=== PATIENT | female | born 1970 | race Two or more races ===

== ENCOUNTER 2022-12-05 20:09 | Inpatient (IN) | payer MEDICAID ==
[~2022-12-05] VITALS: Ht 167.6 cm; Wt 59.0 kg
[2022-12-05] MEDS ORDERED: IV NS 0.9% 1,000 ML BAG IV ONE (20:30)
--- NOTE | 2022-12-05 20:48 | NUR ---
MOVE SHEET SUBMITTED
[2022-12-05 20:55] LABS: BASOPHILS % (AUTO) 0.2 % (0.0-2.0); EOSINOPHILS % (AUTO) 0.7 % (0.0-6.0); HEMATOCRIT 40 % (33-45); HEMOGLOBIN 13.1 g/dL (11.5-14.8); LYMPHOCYTES # (AUTO) 1.9 K/uL (0.8-4.8); LYMPHOCYTES % (AUTO) 9.2 % (20.0-44.0); MEAN CORPUSCULAR HGB CONC 33 g/dl (31.0-36.0); MEAN CORPUSCULAR VOLUME 86 fL (82-100); MONOCYTES % (AUTO) 4.9 % (2.0-12.0); NEUTROPHILS # (AUTO) 17.3 K/uL (1.8-8.9); PLATELET COUNT (AUTO) 249 K/uL (150-450); RED BLOOD CELL COUNT(AUTO) 4.65 MIL/uL (4.0-5.2); WHITE BLOOD COUNT (AUTO) 20.4 K/uL (4.3-11.0)
[2022-12-05] MEDS ORDERED: VANCOMYCIN 1 GM in IV D5W 250 ML IV ONE (21:00)
[2022-12-05] MEDS ORDERED: AZTREONAM 1 G in IV NS 0.9% 100 ML IV ONE (21:00)
[2022-12-05] MEDS ORDERED: ACETAMINOPHEN 650 MG/SUPP.RECT RC ONE ×2 (21:00→21:37)
[2022-12-05] MEDS ORDERED: AZITHROMYCIN 500 MG in IV D5W 250 ML IV ONE (21:00)
--- NOTE | 2022-12-05 21:02 | NUR ---
urine sent to lab
--- NOTE | 2022-12-05 21:02 | NUR ---
shamar sent to lab.
--- NOTE | 2022-12-05 21:02 | NUR ---
blood and cultures sent to lab
--- NOTE | 2022-12-05 21:03 | NUR ---
chest x ray taken.
[2022-12-05] MEDS ORDERED: VANCOMYCIN 1 GM /D5W 250 ML PB IV ONE (21:08)
--- NOTE | 2022-12-05 21:20 | NUR ---
RT CALLED FOR ABG
[2022-12-05 21:21] LABS: ALANINE AMINOTRANSFERASE 79 U/L (12-78); ALKALINE PHOSPHATASE 202 U/L (46-116); ASPARTATE AMINOTRANSFERASE 66 U/L (15-37); BILIRUBIN,DIRECT 0.3 mg/dL (0.0-0.2); BILIRUBIN,TOTAL 0.8 mg/dL (0.2-1.0); CALCIUM, SERUM 9.2 mg/dL (8.5-10.1); CARBON DIOXIDE 27 mmol/L (21-32); CHLORIDE 101 mmol/L (98-107); CREATININE 0.7 mg/dL (0.6-1.3); GLUCOSE 108 mg/dL (74-106); SODIUM SERUM 136 mmol/L (136-145); TOTAL PROTEIN, SERUM 7.9 g/dL (6.4-8.2); UREA NITROGEN, BLOOD 18 mg/dL (7-18)
--- NOTE | 2022-12-05 21:24 | NUR ---
CRITICAL: LACTIC 2.1, MD AWARE
[2022-12-05 21:41] LABS: ABG BASE EXCESS -0.2 mmol/L; ABG PH 7.452 (7.350-7.450); ABG PO2 77.5 mmHg (75.0-100.0); COHb 0.6 % (0.5-1.5); MetHb 0.4 % (0.0-1.5); O2Hb 94.9 % (94.0-97.0); SITE, ABG Left Radial; VENT MODE, BG Nasal Cannula
--- NOTE | 2022-12-05 21:48 | NUR ---
DR ENG ON PHONE CALL WITH TAY NICE
[2022-12-05 21:49] LABS: EOSINOPHILS % (MANUAL) 1 % (0-4); LYMPHOCYTES % (MANUAL) 8 % (16-48); MONOCYTES % (MANUAL) 5 % (0-11.0); NEUTROPHILS % (MANUAL) 86 (42-76)
--- NOTE | 2022-12-05 23:57 | NUR ---
REPORT GIVEN TO CORKY Bolden RN FOR [place]
[2022-12-06 00:10] VITALS: BP 91/44
--- NOTE | 2022-12-06 00:10 | NUR ---
ADMISSION 52 y/o female nonverbal. Eyes closed, appears sleeping. Patients Jez at bedside. Patient non communicative. Hx Stroke. Skin assessment done. Abdomen presence of Gtube. Hanson cath intact, draining cloudy yellow with sediments urine. Fall/skin precaution maintained. Will cont to monitor.
--- NOTE | 2022-12-06 01:07 | NUR ---
CRITICAL LAB VALUE Lab reported Lactic Acid 2.2. Patient was given 1L NS in ER prior transfer to unit. Notified BUSINESS DATABASE ANALYST Violet with no new orders at this time.
[2022-12-06] MEDS: ENOXAPARIN SODIUM 40 MG/0.4 ML DISP.SYRIN SQ SCH ×2 (02:25→22:15)
[2022-12-06] MEDS ORDERED: MAG HYDROX/AL HYDROX/SIMETH 30 ML UDC PO PRN (02:30)
[2022-12-06] MEDS ORDERED: MAGNESIUM HYDROXIDE 30 ML UDC PO PRN (02:30)
[2022-12-06] MEDS ORDERED: ONDANSETRON HCL/PF 4 MG/2 ML VIAL IVP PRN (02:30)
[2022-12-06] MEDS ORDERED: ZOLPIDEM TARTRATE 5 MG TABLET PO PRN (02:30)
[2022-12-06] MEDS ORDERED: ACETAMINOPHEN 325 MG TABLET PO PRN (02:30)
[2022-12-06] MEDS ORDERED: Z GUARD REMEDY 4 OZ OINT TP PRN (02:30)
[2022-12-06] MEDS ORDERED: CEFEPIME 2 GM in IV D5W 100 ML IV ONE (02:30)
[2022-12-06] MEDS ORDERED: CEFEPIME 1 GM VIAL ONE (02:36)
[2022-12-06 05:19] VITALS: BP 110/60
[2022-12-06 05:57] LABS: BASOPHILS % (AUTO) 0.1 % (0.0-2.0); HEMATOCRIT 35 % (33-45); HEMOGLOBIN 11.6 g/dL (11.5-14.8); LYMPHOCYTES % (AUTO) 10.3 % (20.0-44.0); MEAN CORPUSCULAR HGB CONC 33 g/dl (31.0-36.0); MEAN CORPUSCULAR VOLUME 86 fL (82-100); MONOCYTES # (AUTO) 0.7 K/uL (0.1-1.30); MONOCYTES % (AUTO) 3.7 % (2.0-12.0); NEUTROPHILS # (AUTO) 16.3 K/uL (1.8-8.9); NEUTROPHILS % (AUTO) 84.9 % (43.0-81.0); PLATELET COUNT (AUTO) 216 K/uL (150-450); RED BLOOD CELL COUNT(AUTO) 4.04 MIL/uL (4.0-5.2); WHITE BLOOD COUNT (AUTO) 19.2 K/uL (4.3-11.0)
[2022-12-06 06:26] LABS: CALCIUM, SERUM 8.3 mg/dL (8.5-10.1); CREATININE 0.5 mg/dL (0.6-1.3); MAGNESIUM 2.4 mg/dL (1.8-2.4); PHOSPHORUS 2.7 mg/dL (2.5-4.9); POTASSIUM 3.9 mmol/L (3.5-5.1)
[2022-12-06 07:00] VITALS: BP 113/73
--- NOTE | 2022-12-06 07:25 | NUR ---
INFORMATION SERVICES TECH OPENING NOTES PATIENT RECEIVED IN BED ASLEEP AT THIS TIME, AWAKENS TO TACTILE STIMULI. HOB ELEVATED. PT IS NON-VERBAL AND OPEN EYES TO STIMULI. NO S/S OF PAIN OR DISCOMFORT AT THIS TIME. ON 02 VIA N/C @ 4LPM, TOLERATING WELL, BREATHING EVEN AND UNLABORED, NO SOB NOTED. IV ACCESS AT RIGHT HAND G#20 INTACT, PATENT AND FLUSHES WELL. PT ON EXTERNAL LENS GAUGER WITH CURRENT READING OF NSR, HR 96, NO S/S OF CARDIAC DISTRESS NOTED. G-TUBE IN PLACE AND PATENT. ASPIRATION PRECAUTIONS MAINTAINED. LIMA CATHETER IN PLACE WITH SLIGHTLY CLOUDY YELLOW URINE WITH SEDIMENTS OUTPUT NOTED. SAFETY MEASURES IN PLACE: BED LOCKED IN LOWEST POSITION, SIDE-RAILS UP X 3, HOB KEPT ELEVATED, BED ALARM ON, CALL LIGHT AND TRAY TABLE WITHIN REACH. WILL CONTINUE TO MONITOR PT.
--- NOTE | 2022-12-06 07:29 | NUR ---
END OF SHIFT REPORT Patient in bed, nonverbal, eyes closed. Oxygen sat high 90's in 4L NC. Sinus rhythm in the groundwater monitoring technician, HR 95. Right hand IV peripheral line intact. IV abx given with no adverse side effect. Patient had BM during the night, incontinent care done. Hanson cath draining, output 1200ml yellow cloudy with sediment. Afebrile. Abdomen presence of GTube, clamped at this time. Home medication for review. Urine specimen for test. Coccyx redness, wound consult placed. Care endorsed to BLAYNE Calzada.
--- NOTE | 2022-12-06 08:15 | NUR ---
RN NOTES URINE SPECIMEN COLLECTED AND CALLED LAB, SPOKED TO FORENSIC SOCIAL WORKER MARIO TO PICK-UP SPECIMEN FROM UNIT.
[2022-12-06 08:59] LABS: ABG OXYGEN SATURATION 95.2 % (92.0-98.5); ABG PCO2 37.1 mmHg (35.0-45.0); ABG PO2 76.4 mmHg (75.0-100.0); AaDO2 166.1 mmHg; COHb 0.6 % (0.5-1.5); MetHb 0.3 % (0.0-1.5); O2Hb 94.3 % (94.0-97.0); SITE, ABG Left Brachial; VENT MODE, BG NASAL CANNULA
--- NOTE | 2022-12-06 09:13 | NUR ---
WOUND CARE CONSULT: PT PRESENTS WITH SACRAL DEEP TISSUE INJURY, PRESENT ON ADMISSION. RECOMMENDATIONS MADE FOR SKIN PROTECTION. DISCUSSED WITH NURSING STAFF. MD IN AGREEMENT WITH PLAN OF CARE.
[2022-12-06] MEDS: PANTOPRAZOLE 40 MG VIAL IV SCH (09:14)
--- NOTE | 2022-12-06 09:22 | NUR ---
WOUND CARE CONSULT: PT PRESENTS WITH SACRAL DEEP TISSUE INJURY AND REDNESS TO BILATERAL FEET, PRESENT ON ADMISSION. LOWER EXXTREMITIES ARE CONTRACTED, MAKING OFFLOADING DIFFICULT. RECOMMENDATIONS MADE FOR SKIN PROTECTION. DISCUSSED WITH NURSING STAFF. IN AGREEMENT WITH PLAN OF CARE. Addendum: 12/06/22 at 0924 by BAO SEE WNDNU Amended: Links added.
[2022-12-06] MEDS: VANCOMYCIN 0.75 GM in IV D5W 250 ML IV SCH ×3 (09:50→23:24)
[2022-12-06] MEDS ORDERED: [UNRECOGNIZED DRUG - CODE] GT (09:59)
[2022-12-06] MEDS ORDERED: FAMO20TA8 GT (10:00)
[2022-12-06] MEDS ORDERED: LORA-259 GT (10:00)
[2022-12-06] MEDS ORDERED: NYST15PO4 TP (10:00)
[2022-12-06] MEDS ORDERED: [UNRECOGNIZED DRUG - CODE] TP (10:00)
[2022-12-06] MEDS ORDERED: NA P133E RC (10:00)
[2022-12-06] MEDS ORDERED: CRAN3875 GT (10:00)
[2022-12-06] MEDS ORDERED: ASPI-1169 GT (10:00)
[2022-12-06] MEDS ORDERED: SENN-261 GT (10:00)
[2022-12-06] MEDS ORDERED: BISA10SU11 RC (10:00)
[2022-12-06] MEDS ORDERED: IPRA0.2S9 IH (10:00)
[2022-12-06] MEDS ORDERED: ASCO-352 TD (10:00)
[2022-12-06] MEDS ORDERED: AMLO-213 GT (10:00)
[2022-12-06] MEDS ORDERED: CLOT15CR27 TP (10:00)
[2022-12-06] MEDS ORDERED: BACL10TA GT (10:00)
[2022-12-06] MEDS ORDERED: MULT9LIQ6 GT (10:00)
[2022-12-06] MEDS ORDERED: HYDR-4077 GT (10:00)
[2022-12-06] MEDS ORDERED: MAGN400O6 GT (10:00)
[2022-12-06] MEDS ORDERED: POLY15DR40 EACHEYE (10:00)
[2022-12-06] MEDS ORDERED: DOCU250C14 GT (10:00)
[2022-12-06] MEDS ORDERED: ACET-868 PO (10:00)
[2022-12-06] MEDS ORDERED: ATOR40TA GT (10:00)
[2022-12-06] MEDS ORDERED: CLON0.1T GT (10:00)
[2022-12-06] MEDS: JEVITY 1.2 CAL 1,000 ML BOTTLE GT PRN (10:42)
--- NOTE | 2022-12-06 11:16 | NUR ---
RN NOTES Pt seen and evaluated by agricultural produce sorter FRANDY and recommend JEVITY 1.2. Start at 20 ml/hr and advance 10-15 ml Q4H to goal of 55 ml/hr x 24 hr. Feed started at 1042. Aspiration precautions maintained. Will continue to monitor.
[2022-12-06] MEDS: CEFEPIME 2 GM in IV D5W 100 ML IV SCH ×2 (11:38→17:12)
[2022-12-06 12:20] LABS: BILIRUBIN,URINE NEGATIVE (NEGATIVE); COLOR,URINE DARK YELLOW (YELLOW); LEUKOCYTE ESTERASE ,URINE 3+ (NEGATIVE); NITRITE, URINE POSITIVE (NEGATIVE); PH,URINE 7.5 (5.0-8.0); PROTEIN,URINE 1+ mg/dl (NEGATIVE); UGLUCOSE NEGATIVE (NEGATIVE); UROBILINOGEN,URINE 0.2 EU/dL (0.2)
[2022-12-06 12:21] LABS: BACTERIA,URINE Few /HPF (None Seen); SQUAMOUS EPITHELIAL CELL,UR Rare /HPF (None Seen)
--- NOTE | 2022-12-06 12:37 | NUR ---
RN NOTE CALLED DR. PETTIT AND NOTIFIED HIM REGARDING CURRENT UA RESULTS, INFORMED HIM ALSO THAT PATIENT IS PULLING TUBES WITH AN ORDER TO PLACE LEFT HAND MITTENS FOR SAFETY. INFORMED HIM WELL TO VERIFY HOME MEDICATION RECONCILIATION.
[2022-12-06] MEDS ORDERED: SENNOSIDES 8.6 MG TABLET GT PRN (14:00)
[2022-12-06] MEDS ORDERED: BISACODYL SUPP (10 MG) 10 MG/SUPP.RECT SUPP.RECT RC PRN (14:00)
[2022-12-06] MEDS ORDERED: NA PHOS,M-B/NA PHOS,DI-BA 1 EA ENEMA RC PRN (14:00)
--- NOTE | 2022-12-06 14:49 | NUR ---
RN NOTES CHECKED GASTRIC RESIDUALS AND WAS "0", JEVITY FEEDING INCREASED FROM 20 TO 35ML/HR.
[2022-12-06 16:00] VITALS: BP 141/74
[2022-12-06] MEDS: DOCUSATE SODIUM 250 MG CAPSULE PO SCH (16:56)
[2022-12-06] MEDS: MAGNESIUM HYDROXIDE 30 ML UDC GT SCH (16:57)
[2022-12-06] MEDS: BACLOFEN (10 MG) 10 MG TABLET GT SCH ×2 (16:57→21:25)
[2022-12-06] MEDS: hydrALAZINE HCL 50 MG TABLET GT SCH (16:58)
--- NOTE | 2022-12-06 17:17 | NUR ---
RN NOTE CALLED RADIOLOGY TO F/U REGARDING PATIENTS CT OF THE NECK W/O CONTRAST AND WAS TOLD THAT IT WILL BE DONE BY TOMORROW PER [facility].
--- NOTE | 2022-12-06 18:48 | NUR ---
PERSONAL COMPUTER NETWORK ANALYST CLOSING NOTES PATIENT IN BED AWAKE AND LYING AT SEMI-MALCOLM'S POSITION. MUMBLES INCOMPREHENSIBLE WORDS AND OPEN EYES TO STIMULI. ON 02 VIA N/C @ 4LPM, TOLERATING WELL, BREATHING EVEN AND UNLABORED, NO SOB NOTED. LEFT HAND MITTEN KEPT IN PLACE, CIRCULATION AND SKIN WNL. IV ACCESS AT RIGHT HAND G#20 INTACT, PATENT AND FLUSHES WELL. ON TELE-MONITOR WITH CURRENT READING OF NSR, HR 99, NO S/S OF CARDIAC DISTRESS NOTED. G-TUBE IN PLACE AND PATENT WITH FEEDING OF JEVITY 1.2 @ 45 ML/HR ONGOING AT THIS TIME, TOLERATING WELL. ASPIRATION PRECAUTIONS MAINTAINED. LIMA CATHETER IN PLACE WITH SLIGHTLY CLOUDY YELLOW URINE WITH SEDIMENTS OUTPUT NOTED. PT TURNED AND REPOSITIONED Q 2HRS AND PRN. ALL NEEDS NAD CARE PROVIDED WELL. SAFETY MEASURES IN PLACE: BED LOCKED IN LOWEST POSITION, SIDE-RAILS UP X 3, HOB KEPT ELEVATED, BED ALARM ON, CALL LIGHT AND TRAY TABLE WITHIN REACH. WILL ENDORSE [place] TO LATHE MECHANIC NURSE.
--- NOTE | 2022-12-06 19:30 | NUR ---
PROCESS IMPROVEMENT MANAGER OPENING NOTES RECEIVED PATIENT AWAKE IN BED, NON-VERBAL AND OPEN EYES TO STIMULI. HOB ELEVATED. NO S/S OF PAIN OR DISCOMFORT AT THIS TIME. ON 02 VIA N/C @ 4LPM, BREATHING EVEN AND UNLABORED, NO DISTRESS OR SOB NOTED. IV ACCESS AT RIGHT HAND G#20 INTACT, PATENT AND FLUSHES WELL. PT ON EXTERNAL BLAST HOLE DRILLER WITH CURRENT READING OF SR/ST. NO S/S OF CARDIAC DISTRESS NOTED. G-TUBE IN PLACE RUNNING JEVITY 45ML/HR, TOLERATING WELL. ASPIRATION PRECAUTIONS MAINTAINED. LIMA CATHETER IN PLACE WITH SLIGHTLY CLOUDY YELLOW URINE. SAFETY MEASURES IN PLACE WITH BED IN LOWEST AND LOCKED POSITION. SIDE-RAILS UP X 3. BED ALARM ON. CALL LIGHT AND TRAY TABLE WITHIN REACH. WILL CONTINUE THE PLAN OF CARE.
--- NOTE | 2022-12-06 20:00 | NUR ---
RN NOTES-TYLENOL GIVEN PATIENT TEMP 101.7, TYLENOL 650MG GIVEN PRN. WILL CONTINUE TO MONITOR THE PATIENT.
[2022-12-06 20:15] VITALS: BP 141/70
[2022-12-06] MEDS: ATORVASTATIN 40 MG TABLET GT SCH (21:24)
[2022-12-06] MEDS: FAMOTIDINE (20 MG) 20 MG TABLET GT SCH (21:26)
[2022-12-06] MEDS: MEROPENEM 500 MG in IV NS 0.9% 50 ML IV SCH (21:28)
[2022-12-07 00:33] VITALS: BP 96/60
[2022-12-07 04:20] VITALS: BP 125/67
[2022-12-07] MEDS: MEROPENEM 500 MG in IV NS 0.9% 50 ML IV SCH ×3 (05:29→20:53)
--- NOTE | 2022-12-07 06:45 | NUR ---
BLAYNE MS/Tele Closing Note: Pt in bed resting, no signs or complaints of pain or discomfort at this time. IV site at LFA 20 gauge IV fluids running to keep vein open. GTube pump running at 55 mL/ hr, pt tolerating feeding well. Hanson catheter draining clear, yellow urine with 600 mL output. PM care provided, positioned for comfort. Addendum: 12/07/22 at 5 by ZAIRA STVEENSON RN Above note is meant for 1844.
[2022-12-07 07:00] VITALS: BP 126/67
--- NOTE | 2022-12-07 07:08 | NUR ---
GUN STOCKER CLOSING NOTES PATIENT AWAKE IN BED. A/O X 1-2. PATIENT ABLE TO RESPOND TO SIMPLE QUESTIONS. HOB ELEVATED. NO S/S OF PAIN OR DISCOMFORT AT THIS TIME. ON 02 VIA N/C @ 4LPM, BREATHING EVEN AND UNLABORED, NO DISTRESS OR SOB NOTED. IV ACCESS AT RIGHT HAND G#20 INTACT, PATENT AND FLUSHES WELL. PT ON EXTERNAL GUN STOCKER WITH CURRENT READING OF SR/ST. NO S/S OF CARDIAC DISTRESS NOTED. G-TUBE IN PLACE RUNNING JEVITY 55ML/HR, TOLERATING WELL. ASPIRATION PRECAUTIONS MAINTAINED. LIMA CATHETER IN PLACE WITH SLIGHTLY CLOUDY YELLOW URINE WITH PUTOUT OF 950CC. ALL MEDICATIONS GIVEN. SAFETY MEASURES MAINTAINED. WILL ENDORSE TO THE NEXT SHIFT.
[2022-12-07 07:14] LABS: BASOPHILS % (AUTO) 0.2 % (0.0-2.0); EOSINOPHILS % (AUTO) 1.8 % (0.0-6.0); HEMATOCRIT 36 % (33-45); HEMOGLOBIN 11.9 g/dL (11.5-14.8); LYMPHOCYTES # (AUTO) 0.7 K/uL (0.8-4.8); LYMPHOCYTES % (AUTO) 7.5 % (20.0-44.0); MEAN CORPUSCULAR HGB CONC 33 g/dl (31.0-36.0); MEAN CORPUSCULAR VOLUME 86 fL (82-100); MONOCYTES # (AUTO) 0.6 K/uL (0.1-1.30); MONOCYTES % (AUTO) 6.3 % (2.0-12.0); NEUTROPHILS # (AUTO) 8.2 K/uL (1.8-8.9); NEUTROPHILS % (AUTO) 84.2 % (43.0-81.0); PLATELET COUNT (AUTO) 260 K/uL (150-450); RED BLOOD CELL COUNT(AUTO) 4.14 MIL/uL (4.0-5.2); WHITE BLOOD COUNT (AUTO) 9.7 K/uL (4.3-11.0)
--- NOTE | 2022-12-07 07:30 | NUR ---
MS/heating worker Opening Notes Received pt in bed, awake, alert, verbal with limited vocab and speaks Bruneian/tends to mumble, difficult to understand. Pt has Gtube, feeding pump running Jevity at 55 mL per hour per MD order. Pt is tolerating feeding well. Pt found to have removed her own IV access, BLAYNE Renteria to insert a new IV line R arm. Pt is smiling, no signs of pain or distress. All needs are met at this time. Bed rails up, bed alarm on, call finney within reach. Will continue to monitor pt.
[2022-12-07 07:35] LABS: CALCIUM, SERUM 8.5 mg/dL (8.5-10.1); CREATININE 0.5 mg/dL (0.6-1.3); MAGNESIUM 2.3 mg/dL (1.8-2.4); PHOSPHORUS 2.3 mg/dL (2.5-4.9); POTASSIUM 3.5 mmol/L (3.5-5.1)
[2022-12-07] MEDS: VANCOMYCIN 0.75 GM in IV D5W 250 ML IV SCH ×2 (09:11→16:41)
[2022-12-07] MEDS: hydrALAZINE HCL 50 MG TABLET GT SCH ×3 (10:47→17:00)
[2022-12-07] MEDS: ASPIRIN 81 MG TAB.CHEW GT SCH (10:48)
[2022-12-07] MEDS: BACLOFEN (10 MG) 10 MG TABLET GT SCH ×4 (10:49→20:51)
[2022-12-07] MEDS: MAGNESIUM HYDROXIDE 30 ML UDC GT SCH ×2 (10:49→17:20)
[2022-12-07] MEDS: AMLODIPINE BESYLATE 10 MG TABLET GT SCH (10:50)
[2022-12-07] MEDS: FAMOTIDINE (20 MG) 20 MG TABLET GT SCH ×2 (10:50→20:51)
[2022-12-07] MEDS: DOCUSATE SODIUM 250 MG CAPSULE PO SCH (10:51)
[2022-12-07] MEDS: PANTOPRAZOLE 40 MG VIAL IV SCH (10:51)
[2022-12-07 12:00] VITALS: BP 103/64
[2022-12-07] MEDS: IPRATROPIUM NEB FS 0.5 MG/2.5 ML AMPUL.NEB IH SCH ×2 (15:41→23:10)
[2022-12-07] MEDS ORDERED: MAG HYDROX/AL HYDROX/SIMETH 30 ML UDC GT PRN (15:47)
[2022-12-07 16:00] VITALS: BP 104/53
[2022-12-07] MEDS ORDERED: ACETAMINOPHEN 650 MG/20.3 ML UDC GT PRN (16:00)
[2022-12-07] MEDS ORDERED: NEUTRA PHOS 1 POWD.PACKET GT ONE (16:00)
[2022-12-07] MEDS ORDERED: NEUTRA PHOS 1 POWD.PACKET PO ONE (16:00)
[2022-12-07] MEDS: JEVITY 1.2 CAL 1,000 ML BOTTLE GT PRN (16:22)
[2022-12-07] MEDS: DOCUSATE SODIUM LIQ 100 MG/10 ML UDC GT SCH (17:19)
--- NOTE | 2022-12-07 19:30 | NUR ---
PIPE COVERER AND INSULATOR OPENING NOTES RECEIVED PATIENT AWAKE IN BED. A/O X 1-2, ABLE TO RESPOND TO SIMPLE QUESTIONS. HOB ELEVATED FOR ASPIRATION PRECAUTION. NO S/S OF PAIN OR DISCOMFORT AT THIS TIME. ON 02 VIA N/C @ 2LPM, BREATHING EVEN AND UNLABORED, NO DISTRESS OR SOB NOTED. IV ACCESS LFA #20G INTACT, PATENT AND SALINE LOCK. PATIENT ON EXTERNAL CIVIL ENGINEER IN TRAINING WITH CURRENT READING OF SR/ST. NO S/S OF CARDIAC DISTRESS NOTED. G-TUBE IN PLACE RUNNING JEVITY 55ML/HR, TOLERATING WELL. LIMA CATHETER IN PLACE WITH SLIGHTLY CLOUDY YELLOW URINE. SAFETY MEASURES IN PLACE WITH BED IN LOWEST AND LOCKED POSITION. SIDE-RAILS UP X 3. BED ALARM ON. CALL LIGHT AND TRAY TABLE WITHIN REACH. WILL CONTINUE THE PLAN OF CARE.
[2022-12-07 20:00] VITALS: BP 113/52
[2022-12-07] MEDS: ENOXAPARIN SODIUM 40 MG/0.4 ML DISP.SYRIN SQ SCH (20:53)
[2022-12-07] MEDS: ATORVASTATIN 40 MG TABLET GT SCH (21:15)
[2022-12-08] VITALS: BP 101/55
[2022-12-08] MEDS: VANCOMYCIN 0.75 GM in IV D5W 250 ML IV SCH ×4 (00:13→23:25)
--- NOTE | 2022-12-08 01:10 | NUR ---
RN NOTES-TYLENOL GIVEN PATIENT'S TEMP LEVEL 100.5. TYLENOL 650MG GIVEN PRN. NO DISTRESS NOTED AT THIS TIME. WILL CONTINUE TO MONITOR THE PATIENT.
--- NOTE | 2022-12-08 01:45 | NUR ---
RN NOTES-TEMPERATURE CHECK PATIENT'S TEMP LEVEL IS 99.5. NO DISTRESS NOTED. WILL CONTINUE TO MONITOR THE PATIENT.
[2022-12-08] MEDS: MEROPENEM 500 MG in IV NS 0.9% 50 ML IV SCH ×3 (05:03→21:35)
[2022-12-08 06:56] LABS: BASOPHILS % (AUTO) 0.3 % (0.0-2.0); EOSINOPHILS % (AUTO) 4.1 % (0.0-6.0); HEMATOCRIT 34 % (33-45); HEMOGLOBIN 11.5 g/dL (11.5-14.8); LYMPHOCYTES # (AUTO) 1.7 K/uL (0.8-4.8); LYMPHOCYTES % (AUTO) 24.6 % (20.0-44.0); MEAN CORPUSCULAR HGB CONC 34 g/dl (31.0-36.0); MEAN CORPUSCULAR VOLUME 86 fL (82-100); MONOCYTES # (AUTO) 0.9 K/uL (0.1-1.30); MONOCYTES % (AUTO) 13.2 % (2.0-12.0); NEUTROPHILS # (AUTO) 4.1 K/uL (1.8-8.9); NEUTROPHILS % (AUTO) 57.8 % (43.0-81.0); PLATELET COUNT (AUTO) 289 K/uL (150-450); RED BLOOD CELL COUNT(AUTO) 4.01 MIL/uL (4.0-5.2)
[2022-12-08 07:00] VITALS: BP 94/55
[2022-12-08 07:19] LABS: CALCIUM, SERUM 8.7 mg/dL (8.5-10.1); CREATININE 0.5 mg/dL (0.6-1.3); MAGNESIUM 2.6 mg/dL (1.8-2.4); PHOSPHORUS 3.4 mg/dL (2.5-4.9); POTASSIUM 3.7 mmol/L (3.5-5.1)
--- NOTE | 2022-12-08 07:37 | NUR ---
GREEN MARKETER OPENING NOTES RECEIVED PATIENT AWAKE IN BED. A/O X 1-2, ABLE TO RESPOND TO SIMPLE QUESTIONS. HOB ELEVATED FOR ASPIRATION PRECAUTION. NO S/S OF PAIN OR DISCOMFORT AT THIS TIME. ON 02 VIA N/C @ 2LPM, BREATHING EVEN AND UNLABORED, NO DISTRESS OR SOB NOTED. IV ACCESS LFA #20G INTACT, PATENT AND SALINE LOCK. PATIENT ON EXTERNAL LOCOMOTIVE LUBRICATING SYSTEMS CLERK WITH CURRENT READING OF SR/ST. NO S/S OF CARDIAC DISTRESS NOTED. G-TUBE IN PLACE RUNNING JEVITY 55ML/HR, TOLERATING WELL. LIMA CATHETER IN PLACE WITH SLIGHTLY CLOUDY YELLOW URINE. SAFETY MEASURES IN PLACE WITH BED IN LOWEST AND LOCKED POSITION. SIDE-RAILS UP X 3. BED ALARM ON. CALL LIGHT AND TRAY TABLE WITHIN REACH. WILL CONTINUE THE PLAN OF CARE.
--- NOTE | 2022-12-08 07:38 | NUR ---
DESKIDDING MACHINE OPERATOR CLOSING NOTES PATIENT SLEEPING IN BED. EASILY AWAKEN BY VERBAL STIMULI. A/O X 1-2, ABLE TO RESPOND TO SIMPLE QUESTIONS. HOB ELEVATED FOR ASPIRATION PRECAUTION. NO S/S OF PAIN OR DISCOMFORT AT THIS TIME. ON 02 VIA N/C @ 2LPM, BREATHING EVEN AND UNLABORED, NO DISTRESS OR SOB NOTED. IV ACCESS LFA #20G INTACT, PATENT AND SALINE LOCK. PATIENT ON EXTERNAL GRAPHITE DISK ASSEMBLER WITH CURRENT READING OF SR. NO S/S OF CARDIAC DISTRESS NOTED. G-TUBE IN PLACE RUNNING JEVITY 55ML/HR, TOLERATING WELL. LIMA CATHETER IN PLACE WITH SLIGHTLY CLOUDY YELLOW URINE OUTPUT OF 750CC. ALL NEEDS ATTENDED. SAFETY MEASURES MAINTAINED. WILL ENDORSE TO THE NEXT SHIFT.
[2022-12-08] MEDS: IPRATROPIUM NEB FS 0.5 MG/2.5 ML AMPUL.NEB IH SCH ×2 (07:43→15:30)
[2022-12-08] MEDS: MAGNESIUM HYDROXIDE 30 ML UDC GT SCH ×2 (09:43→17:13)
[2022-12-08] MEDS: BACLOFEN (10 MG) 10 MG TABLET GT SCH ×4 (09:43→21:35)
[2022-12-08] MEDS: ASPIRIN 81 MG TAB.CHEW GT SCH (09:44)
[2022-12-08] MEDS: PANTOPRAZOLE 40 MG/PACK PACK GT SCH (09:44)
[2022-12-08] MEDS: DOCUSATE SODIUM LIQ 100 MG/10 ML UDC GT SCH ×2 (09:44→17:13)
[2022-12-08] MEDS: hydrALAZINE HCL 50 MG TABLET GT SCH ×3 (09:45→17:14)
[2022-12-08] MEDS: FAMOTIDINE (20 MG) 20 MG TABLET GT SCH ×2 (09:46→21:35)
[2022-12-08] MEDS: AMLODIPINE BESYLATE 10 MG TABLET GT SCH (09:49)
[2022-12-08 12:00] VITALS: BP 98/54
[2022-12-08] MEDS: JEVITY 1.2 CAL 1,000 ML BOTTLE GT PRN (12:10)
[2022-12-08 16:00] VITALS: BP 103/65
--- NOTE | 2022-12-08 18:47 | NUR ---
GEODETIC COMPUTATOR CLOSING NOTES PATIENT AWAKE IN BED. EASILY AWAKEN BY VERBAL STIMULI. A/O X 2-3, ABLE TO RESPOND TO SIMPLE QUESTIONS. HOB ELEVATED FOR ASPIRATION PRECAUTION. NO S/S OF PAIN OR DISCOMFORT AT THIS TIME. ON RA, BREATHING EVEN AND UNLABORED, NO DISTRESS OR SOB NOTED. IV ACCESS L WRIST #22G INTACT, PATENT AND SALINE LOCK. PATIENT ON EXTERNAL AUTOMOTIVE WORKER WITH CURRENT READING OF SR 75. NO S/S OF CARDIAC DISTRESS NOTED. G-TUBE IN PLACE RUNNING JEVITY 55ML/HR, TOLERATING WELL. LIMA CATHETER IN PLACE WITH SLIGHTLY CLOUDY YELLOW URINE OUTPUT OF 1000CC. ALL NEEDS ATTENDED. SAFETY MEASURES MAINTAINED. WILL ENDORSE TO THE SAILMAKER NURSE FOR [place].
--- NOTE | 2022-12-08 19:30 | NUR ---
FINANCE VICE PRESIDENT OPENING NOTE' RECEIVED PATIENT IN BED, AWAKE, ALERT AND ORIENTED X2. AFEBRILE AND NOT IN ANY FORM OF ACUTE DISTRESS. BREATHING EVEN AND NON LABORED. ON TELE MONITORING WITH CURRENT READING OF SR 75. WITH IV ACCESS ON LEFT WRIST 22G-SL. WITH INTACT G-TUBE WITH ONGOING FEEDING OF JEVITY 1.2 AT 55ML/HR. WITH INTACT LIMA CATHETER DRAINING WELL WITH YELLOW URINE OUTPUT, NO HEMATURIA OR SEDIMENTS NOTED. SAFETY MEASURES IN PLACE. KEPT BED IN LOCKED AND IN LOW POSITION. SIDE RAILS UP X2. ADVISED TO USE THE CALL LIGHT WHEN IN NEED OF ASSISTANCE.
[2022-12-08 20:00] VITALS: BP 109/66
[2022-12-08] MEDS: ATORVASTATIN 40 MG TABLET GT SCH (21:35)
[2022-12-08] MEDS: ENOXAPARIN SODIUM 40 MG/0.4 ML DISP.SYRIN SQ SCH (21:37)
[2022-12-09] VITALS: BP 115/68
[2022-12-09] MEDS: IPRATROPIUM NEB FS 0.5 MG/2.5 ML AMPUL.NEB IH SCH ×3 (00:16→15:30)
[2022-12-09 04:00] VITALS: BP 97/71
[2022-12-09] MEDS: MEROPENEM 500 MG in IV NS 0.9% 50 ML IV SCH ×2 (04:07→13:11)
[2022-12-09] MEDS: JEVITY 1.2 CAL 1,000 ML BOTTLE GT PRN (06:15)
--- NOTE | 2022-12-09 06:28 | NUR ---
NET WEB APPLICATION DEVELOPER CLOSING NOTE PATIENT IN BED, ASLEEP BUT EASY TO AROUSE AND RESPONDS TO VERBAL AND TACTILE STIMULI. AFEBRILE AND NOT IN ANY FORM OF ACUTE DISTRESS. ON O2 INHALATION VIA NASAL CANNULA AT 2LPM. ON TELE MONITORING WITH CURRENT READING OF SR 96. WITH IV ACCESS ON LEFT WRIST 22G-SL. WITH INTACT G-TUBE WITH ONGOING FEEDING OF JEVITY 1.2 AT 55ML/HR., NO RESIDUAL NOTED. WITH INTACT LIMA CATHETER DRAINING WELL WITH YELLOW URINE OUTPUT, NO HEMATURIA OR SEDIMENTS NOTED WITH APPROX. 640 ML URINE OUTPUT DURING THE SHIFT. MEDICATED ORDERED. CONTINUOUS ON IV ATB, MONITORED FOR ANY ADVERSE REACTION. SAFETY MEASURES IN PLACE. KEPT BED IN LOCKED AND IN LOW POSITION. SIDE RAILS UP X2. ADVISED TO USE THE CALL LIGHT WHEN IN NEED OF ASSISTANCE. ALL NURSING NEEDS ATTENDED. ENDORSED TO INCOMING SHIFT FOR CONTINUITY OF CARE.
[2022-12-09 06:51] LABS: BASOPHILS % (AUTO) 0.2 % (0.0-2.0); EOSINOPHILS % (AUTO) 2.8 % (0.0-6.0); HEMATOCRIT 35 % (33-45); HEMOGLOBIN 11.8 g/dL (11.5-14.8); LYMPHOCYTES # (AUTO) 1.9 K/uL (0.8-4.8); LYMPHOCYTES % (AUTO) 24.2 % (20.0-44.0); MEAN CORPUSCULAR HGB CONC 34 g/dl (31.0-36.0); MEAN CORPUSCULAR VOLUME 85 fL (82-100); MONOCYTES # (AUTO) 0.7 K/uL (0.1-1.30); MONOCYTES % (AUTO) 9.2 % (2.0-12.0); NEUTROPHILS % (AUTO) 63.6 % (43.0-81.0); PLATELET COUNT (AUTO) 296 K/uL (150-450); RED BLOOD CELL COUNT(AUTO) 4.07 MIL/uL (4.0-5.2); WHITE BLOOD COUNT (AUTO) 7.9 K/uL (4.3-11.0)
[2022-12-09 07:08] LABS: CALCIUM, SERUM 9.2 mg/dL (8.5-10.1); CREATININE 0.5 mg/dL (0.6-1.3); MAGNESIUM 2.4 mg/dL (1.8-2.4); POTASSIUM 4.1 mmol/L (3.5-5.1)
--- NOTE | 2022-12-09 07:17 | NUR ---
TRAILHEAD MAINTENANCE WORKER OPENING NOTE' RECEIVED PATIENT IN BED, AWAKE, ALERT AND ORIENTED X2-3. AFEBRILE AND NOT IN ANY FORM OF ACUTE DISTRESS. BREATHING EVEN AND NON LABORED. ON TELE MONITORING WITH CURRENT READING OF SR 73. WITH IV ACCESS ON LEFT HAND 22G-SL. WITH INTACT G-TUBE WITH ONGOING FEEDING OF JEVITY 1.2 AT 55ML/HR. WITH INTACT LIMA CATHETER DRAINING WELL WITH YELLOW URINE OUTPUT, NO HEMATURIA OR SEDIMENTS NOTED. SAFETY MEASURES IN PLACE. KEPT BED IN LOCKED AND IN LOW POSITION. SIDE RAILS UP X2. ADVISED TO USE THE CALL LIGHT WHEN IN NEED OF ASSISTANCE. WILL CONTINUE TO MONITOR PATIENT.
[2022-12-09 07:28] LABS: PHOSPHORUS 2.5 mg/dL (2.5-4.9)
[2022-12-09 07:30] VITALS: BP 118/76
[2022-12-09] MEDS: VANCOMYCIN 0.75 GM in IV D5W 250 ML IV SCH ×2 (08:20→16:00)
[2022-12-09] MEDS: DOCUSATE SODIUM LIQ 100 MG/10 ML UDC GT SCH (08:21)
[2022-12-09] MEDS: PANTOPRAZOLE 40 MG/PACK PACK GT SCH (08:21)
[2022-12-09] MEDS: ASPIRIN 81 MG TAB.CHEW GT SCH (08:21)
[2022-12-09] MEDS: MAGNESIUM HYDROXIDE 30 ML UDC GT SCH (08:21)
[2022-12-09] MEDS: BACLOFEN (10 MG) 10 MG TABLET GT SCH ×2 (08:22→13:10)
[2022-12-09] MEDS: FAMOTIDINE (20 MG) 20 MG TABLET GT SCH (08:22)
[2022-12-09] MEDS: hydrALAZINE HCL 50 MG TABLET GT SCH ×2 (08:23→13:11)
[2022-12-09] MEDS: AMLODIPINE BESYLATE 10 MG TABLET GT SCH (08:25)
[2022-12-09] MEDS ORDERED: VANC750P13 IV (10:41)
[2022-12-09] MEDS ORDERED: MERO1VIA23 IV (10:41)
[2022-12-09 11:30] VITALS: BP 125/68
[2022-12-09 13:11] VITALS: BP 125/68
--- NOTE | 2022-12-09 15:57 | NUR ---
RN DISCHARGED NOTES PT DISCHARGED TO [facility] ([facility])IN STABLE CONDITION. A/O x1-2. RESPONSIVE WITH CONFUSION. PATIENT IS BREATHING EVENLY AND UNLABORED WITH NO SIGNS OF DISTRESS NOTED. V/S TAKEN, STABLE AND RECORDED. PHOTOS OF SKIN ISSUES TAKEN AND FILED ON HER CHART. PT BELONGINGS ACCOUNTED FOR, SIGNED AND FILED. IV AT RIGHT HAND G#22 REMOVED, CATHETER TIP INTACT, PRESSURE DRESSING APPLIED, NO SIGNS OF BLEEDING NOTED. LIMA CATHETER REMOVED. G-TUBE IN PLACE AND PATENT. CALLED AND REPORT GIVEN TO ERICK HANSON. TELE-BOX REMOVED AND HANDED BACK TO RETAIL ATTENDANT DAVID. REPORT AND EXIT FOLDER HANDED TO 2 EMT'S. PT LEFT UNIT @ 7406 VIA Translate[employer]RNEY ACCOMPANIED BY 2 EMT'S. OF THE PATIENT, MD AND CHARGE NURSE ARE AWARE OF DISCHARGE.
== END 2022-12-09 16:00 | DRG 720 ==
LOC: ER 20:23 → TELE 23:49
PROVIDERS: ADMIT Nurse Practitioner Acute Care; ATTEND Nurse Practitioner Acute Care
DX: A41.9 Sepsis, unspecified organism (principal); J96.21 Acute and chronic respiratory failure with hypoxia; J69.0 Pneumonitis due to inhalation of food and vomit; G93.41 Metabolic encephalopathy; J15.6 Pneumonia due to other Gram-negative bacteria; D68.59 Other primary thrombophilia; J39.8 Other specified diseases of upper respiratory tract; I69.351 Hemiplegia and hemiparesis following cerebral infarction affecting right dominant side; I10 Essential (primary) hypertension; E78.5 Hyperlipidemia, unspecified; K21.9 Gastro-esophageal reflux disease without esophagitis; R13.10 Dysphagia, unspecified; Z74.01 Bed confinement status; Z93.1 Gastrostomy status; Z20.822 Contact with and (suspected) exposure to COVID-19; Z88.0 Allergy status to penicillin
CPT/HCPCS: 36415; 36600; 70490-TC; 71045-TC; 80048-TC; 80076-TC; 80202-TC; 81001; 82803-TC; 83605-TC; 83735-TC; 83880; 84100-TC; 84484-TC; 85025-TC; 85730-TC; 87040-TC; 87081-TC; 87086-TC; 94799-TC; A4223; C9113; C9803; G0378; J0456; J0692; J1650; J2185; J3370; J3490; J7030; J7040; J7060